=== PATIENT | male | born 1960 | race Caucasian/White ===

== ENCOUNTER → 2017-10-13 | Outpatient (CLI) | payer BC ==
[~2017-10-13] VITALS: Ht 170.2 cm; Wt 91.7 kg
[~2017-10-13] MED LIST: ACETAMINOPHEN 500 MG TABLET PO ONE; FENTANYL PF 100 MCG/2ML ONE; GABAPENTIN 300 MG CAPSULE PO ONE; HYDR15SO3 PO; LACTATED RINGERS 1,000 ML IV SCH; MIDAZOLAM 1 MG/ML, 2ML ONE; ONDA8TAB16 SL; TAMS-11 PO
[2017-10-13 06:36] VITALS: BP 164/98
== END ==
LOC: OUT 05:51 → STAR 05:51 → EDSTATUS 07:30 → OUT 08:00
PROVIDERS: ATTEND Urology
DX: N20.0 Calculus of kidney (principal); Z53.9 Procedure and treatment not carried out, unspecified reason
CPT/HCPCS: 82360; 88300; J7120; J2250; J3010

== ENCOUNTER → 2017-11-13 | Outpatient (CLI) | payer BC ==
[~2017-11-13] MED LIST changes: -ACETAMINOPHEN 500 MG TABLET PO ONE; -FENTANYL PF 100 MCG/2ML ONE; -GABAPENTIN 300 MG CAPSULE PO ONE; -LACTATED RINGERS 1,000 ML IV SCH; -MIDAZOLAM 1 MG/ML, 2ML ONE
== END | disposition home or self-care (01) ==
LOC: CFH 08:07
PROVIDERS: ATTEND Urology
DX: N20.0 Calculus of kidney (principal)
CPT/HCPCS: 74018

== ENCOUNTER → 2017-12-26 | Outpatient (CLI) | payer BC | END | disposition home or self-care (01) | LOC: CFH 07:52 | PROVIDERS: ATTEND Urology | DX: N20.0 Calculus of kidney (principal) | CPT/HCPCS: 74018 ==

== ENCOUNTER → 2020-02-05 | Outpatient (CLI) | payer BC | END | disposition home or self-care (01) | LOC: RAD 11:42 | PROVIDERS: ATTEND Family Medicine | DX: M17.0 Bilateral primary osteoarthritis of knee (principal); M11.261 Other chondrocalcinosis, right knee; E83.119 Hemochromatosis, unspecified ==